=== PATIENT | male | born 1965 | race Caucasian/White ===

== ENCOUNTER 2021-05-13 12:37 | Emergency (ER) | payer OTHER ==
[~2021-05-13 12:37] MED LIST: NORCO 5-325 TA1 EACH PO
[2021-05-13 13:12] LABS: BASOPHIL 0.4 % (0-2); EOSINOPHIL 3.2 % (0-5); HCT 44.8 % (42.0-52.0); HGB 15.3 g/dl (13.2-18.0); LYMPHOCYTE 35.6 % (15-48); MCH 31.2 pg (25.0-31.0); MCHC 34.2 g/dL (32.0-36.0); MCV 91.2 fL (78.0-100.0); MONOCYTE 8.3 % (0-12); MPV 8.5 fL (6.0-9.5); NEUTROPHIL 52.1 % (41-80); NRBC 0; PLT 303 K/uL (150-400); RBC 4.91 M/uL (4.70-6.00); RDW 12.6 % (11.5-14.0); WBC 8.4 K/uL (4.0-10.5)
[2021-05-13 13:44] LABS: INR 1.02 (0.9-1.2); PROTHROMBIN TIME 12.8 SECONDS (11.8-13.4)
[2021-05-13 13:45] LABS: PTT 38.3 SECONDS (24.4-34.7)
[2021-05-13 13:58] LABS: CKMB 1.9 ng/mL (0.0-3.6)
[2021-05-13 14:37] LABS: ALBUMIN 3.6 g/dL (3.4-5.0); BILIRUBIN - TOTAL 0.3 mg/dL (0.2-1.0); BUN/CREAT RATIO (CALC) 9.3 RATIO; CREATININE 0.86 mg/dL (0.67-1.17); GLOBULIN (CALCULATION) 4.4 g/dL; POTASSIUM 3.8 mmol/L (3.5-5.1)
== END 2021-05-13 14:00 | disposition other institution (70) ==
LOC: FER 12:37
PROVIDERS: Emergency Medicine
DX: I21.9 Acute myocardial infarction, unspecified (principal); J44.9 Chronic obstructive pulmonary disease, unspecified; I10 Essential (primary) hypertension; F17.210 Nicotine dependence, cigarettes, uncomplicated; Z20.822 Contact with and (suspected) exposure to COVID-19
CPT/HCPCS: 36415; 71045; 80053; 82553; 84484; 85025; 85610; 85730; 93005; 94762; J0171; J1644; J2270; J2405; U0002

== ENCOUNTER 2021-11-07 15:55 | Inpatient (IN) | payer OTHER ==
[~2021-11-07] VITALS: Ht 177.8 cm; Wt 74.5 kg
[2021-11-07 16:56] LABS: INFLUENZA A NAA NEGATIVE (NEGATIVE)
[2021-11-07 16:58] LABS: CORONAVIRUS 2019 SARS-COV-2 POSITIVE (NEGATIVE)
[2021-11-07 19:14] LABS: ALBUMIN 3.7 g/dL (3.4-5.0); BILIRUBIN - TOTAL 0.5 mg/dL (0.2-1.0); BUN/CREAT RATIO (CALC) 19.1 RATIO; CREATININE 1.15 mg/dL (0.67-1.17); GLOBULIN (CALCULATION) 5.4 g/dL; TOTAL PROTEIN 9.1 g/dL (6.4-8.2)
[2021-11-07 19:15] LABS: POTASSIUM 6.4 mmol/L (3.5-5.1)
[2021-11-07 22:15] LABS: BUN/CREAT RATIO (CALC) 17.7 RATIO; CREATININE 0.96 mg/dL (0.67-1.17)
[2021-11-07 22:16] LABS: POTASSIUM 3.7 mmol/L (3.5-5.1)
[2021-11-07 23:35] LABS: BASOPHIL 0.5 % (0-2); EOSINOPHIL 0.3 % (0-5); HCT 52.2 % (42.0-52.0); HGB 17.5 g/dl (13.2-18.0); LYMPHOCYTE 39.4 % (15-48); MCH 30.1 pg (25.0-31.0); MCHC 33.5 g/dL (32.0-36.0); MCV 89.7 fL (78.0-100.0); MONOCYTE 14.9 % (0-12); MPV 10.2 fL (6.0-9.5); NEUTROPHIL 44.7 % (41-80); NRBC 0; PLT 272 K/uL (150-400); RBC 5.82 M/uL (4.70-6.00); RDW 14.6 % (11.5-14.0); WBC 6.5 K/uL (4.0-10.5)
[2021-11-08 07:29] LABS: BASOPHIL 0.1 % (0-2); EOSINOPHIL 0.8 % (0-5); HCT 45.9 % (42.0-52.0); HGB 15.4 g/dl (13.2-18.0); LYMPHOCYTE 19.2 % (15-48); MCH 29.7 pg (25.0-31.0); MCHC 33.6 g/dL (32.0-36.0); MCV 88.4 fL (78.0-100.0); MONOCYTE 9.2 % (0-12); MPV 8.5 fL (6.0-9.5); NEUTROPHIL 70.6 % (41-80); NRBC 0; PLT 189 K/uL (150-400); RBC 5.19 M/uL (4.70-6.00); RDW 13.8 % (11.5-14.0); WBC 7.7 K/uL (4.0-10.5)
[2021-11-08 07:39] LABS: INR 1.02 (0.9-1.2); PROTHROMBIN TIME 12.8 SECONDS (11.8-13.4)
[2021-11-08 08:01] LABS: BUN/CREAT RATIO (CALC) 18.2 RATIO; CREATININE 0.99 mg/dL (0.67-1.17); POTASSIUM 3.8 mmol/L (3.5-5.1)
[2021-11-09 06:31] LABS: BASOPHIL 0.2 % (0-2); EOSINOPHIL 0 % (0-5); HGB 13.6 g/dl (13.2-18.0); LYMPHOCYTE 27.4 % (15-48); MCH 29.6 pg (25.0-31.0); MCHC 33.2 g/dL (32.0-36.0); MCV 89.3 fL (78.0-100.0); MONOCYTE 7.1 % (0-12); MPV 8.9 fL (6.0-9.5); NEUTROPHIL 65.3 % (41-80); NRBC 0; PLT 169 K/uL (150-400); RBC 4.59 M/uL (4.70-6.00); RDW 13.6 % (11.5-14.0); WBC 4.7 K/uL (4.0-10.5)
[2021-11-09 07:04] LABS: BUN/CREAT RATIO (CALC) 13.4 RATIO; CREATININE 0.82 mg/dL (0.67-1.17); POTASSIUM 4.6 mmol/L (3.5-5.1)
--- NOTE | 2021-11-09 07:12 | NUR ---
PT REPORTS : "I WORRY I HAVE A CLOT IN MY RIGHT CALF." NO WARMTH OR REDNESS TO AREA & NEGATIVE FOR HOMANS SIGN. PT STATED "I GET CRAMPS IN THAT LEG A LOT."
[2021-11-10 06:40] LABS: BASOPHIL 0.2 % (0-2); HCT 39.5 % (42.0-52.0); HGB 13.2 g/dl (13.2-18.0); LYMPHOCYTE 41.5 % (15-48); MCH 29.5 pg (25.0-31.0); MCHC 33.4 g/dL (32.0-36.0); MCV 88.2 fL (78.0-100.0); MONOCYTE 8.4 % (0-12); MPV 9.1 fL (6.0-9.5); NEUTROPHIL 48.7 % (41-80); NRBC 0; PLT 163 K/uL (150-400); RBC 4.48 M/uL (4.70-6.00); RDW 13.5 % (11.5-14.0)
[2021-11-10 06:43] LABS: WBC 6.1 K/uL (4.0-10.5)
[2021-11-10 07:04] LABS: BUN/CREAT RATIO (CALC) 14.8 RATIO; CREATININE 0.81 mg/dL (0.67-1.17); POTASSIUM 3.4 mmol/L (3.5-5.1)
== END 2021-11-10 12:14 | disposition home or self-care (01) | DRG 356 ==
LOC: FER 15:55 → FMS 21:40
PROVIDERS: Allergy & Immunology Allergy; Emergency Medicine; Nurse Practitioner; Nurse Practitioner Family; Student in an Organized Health Care Education/Training Program; ADMIT Family Medicine
PROC: 8E0ZXY6 Isolation (ICD-10-PCS; 2021-11-07)
PROC: 0DJW4ZZ Inspection of Peritoneum, Percutaneous Endoscopic Approach (ICD-10-PCS; principal; 2021-11-08 14:00)
DX: K56.600 Partial intestinal obstruction, unspecified as to cause (principal); U07.1 COVID-19; J44.9 Chronic obstructive pulmonary disease, unspecified; K21.9 Gastro-esophageal reflux disease without esophagitis; I48.91 Unspecified atrial fibrillation; M19.90 Unspecified osteoarthritis, unspecified site; M54.9 Dorsalgia, unspecified; G89.29 Other chronic pain; F17.210 Nicotine dependence, cigarettes, uncomplicated; I25.2 Old myocardial infarction; Z88.8 Allergy status to other drugs, medicaments and biological substances; Z98.890 Other specified postprocedural states; Z86.010 Personal history of colon polyps
CPT/HCPCS: 36415; 71045; 74019; 74250; 80048; 80053; 83605; 83690; 83880; 84145; 84484; 85025; 85610; 87040; 93005; C9113; J0690; J1100; J1170; J1644; J1885; J2250; J2405; J3010; J7030; Q9967; U0002

== ENCOUNTER 2021-12-16 12:23 | Emergency (ER) | payer OTHER ==
[2021-12-16 12:54] LABS: BASOPHIL 0.4 % (0-2); EOSINOPHIL 2.1 % (0-5); HCT 46.4 % (42.0-52.0); HGB 15.7 g/dl (13.2-18.0); MCH 29.8 pg (25.0-31.0); MCHC 33.8 g/dL (32.0-36.0); MCV 88.2 fL (78.0-100.0); MONOCYTE 10.1 % (0-12); MPV 8.6 fL (6.0-9.5); NEUTROPHIL 44.7 % (41-80); NRBC 0; PLT 328 K/uL (150-400); RBC 5.26 M/uL (4.70-6.00); RDW 14.6 % (11.5-14.0); WBC 10.2 K/uL (4.0-10.5)
[2021-12-16 12:55] LABS: LYMPHOCYTE 42.4 % (15-48)
[2021-12-16 12:58] LABS: INR 1.02 (0.9-1.2); PROTHROMBIN TIME 12.8 SECONDS (11.8-13.4); PTT 31.3 SECONDS (24.4-34.7)
[2021-12-16 13:13] LABS: ALBUMIN 3.8 g/dL (3.4-5.0); BILIRUBIN - TOTAL 0.3 mg/dL (0.2-1.0); BUN/CREAT RATIO (CALC) 14.5 RATIO; CREATININE 1.1 mg/dL (0.67-1.17); GLOBULIN (CALCULATION) 4.5 g/dL; TOTAL PROTEIN 8.3 g/dL (6.4-8.2)
[2021-12-16 13:31] LABS: CORONAVIRUS 2019 SARS-COV-2 NEGATIVE (NEGATIVE); INFLUENZA A NAA NEGATIVE (NEGATIVE)
== END 2021-12-16 15:00 | disposition other institution (70) ==
LOC: FER 12:23
PROVIDERS: Emergency Medicine
DX: I21.3 ST elevation (STEMI) myocardial infarction of unspecified site (principal); I46.9 Cardiac arrest, cause unspecified; I49.01 Ventricular fibrillation; I25.10 Atherosclerotic heart disease of native coronary artery without angina pectoris; Z20.822 Contact with and (suspected) exposure to COVID-19; Z95.5 Presence of coronary angioplasty implant and graft
CPT/HCPCS: 31500; 36415; 36600; 71045; 80048; 80053; 82803; 83735; 83880; 84484; 85025; 85610; 85730; 92950; 93005; J0171; J0282; J1644; J2250; J2704; J3101; J7030; U0002

== ENCOUNTER 2021-12-23 14:32 | Emergency (ER) | payer OTHER ==
[2021-12-23 15:29] LABS: BASOPHIL 0.2 % (0-2); EOSINOPHIL 1.9 % (0-5); HCT 41.4 % (42.0-52.0); HGB 13.8 g/dl (13.2-18.0); LYMPHOCYTE 19.2 % (15-48); MCH 29.4 pg (25.0-31.0); MCHC 33.3 g/dL (32.0-36.0); MCV 88.3 fL (78.0-100.0); MONOCYTE 9.7 % (0-12); MPV 9.5 fL (6.0-9.5); NEUTROPHIL 68.1 % (41-80); NRBC 0; PLT 343 K/uL (150-400); RBC 4.69 M/uL (4.70-6.00); RDW 16.1 % (11.5-14.0); WBC 13.4 K/uL (4.0-10.5)
[2021-12-23 15:42] LABS: CREATININE 0.85 mg/dL (0.67-1.17); POTASSIUM 3.8 mmol/L (3.5-5.1)
[2021-12-23 15:46] LABS: INR 1.14 (0.9-1.2); PTT 33.3 SECONDS (24.4-34.7)
[2021-12-23] MEDS ORDERED: IMODIUM2 MG PO (16:22)
== END 2021-12-23 16:45 | disposition home or self-care (01) ==
LOC: FER 14:32
PROVIDERS: Emergency Medicine
DX: R19.7 Diarrhea, unspecified (principal); I25.10 Atherosclerotic heart disease of native coronary artery without angina pectoris; F17.210 Nicotine dependence, cigarettes, uncomplicated; Z88.8 Allergy status to other drugs, medicaments and biological substances
CPT/HCPCS: 36415; 71045; 80053; 84484; 85025; 85610; 85730; 93005

== ENCOUNTER 2022-07-24 11:55 | Emergency (ER) | payer OTHER ==
[~2022-07-24 11:55] MED LIST changes: +IMODIUM2 MG PO
[2022-07-24 13:31] LABS: BASOPHIL 0.2 % (0-2); EOSINOPHIL 1.1 % (0-5); HCT 43.7 % (42.0-52.0); LYMPHOCYTE 32.2 % (15-48); MCH 31.7 pg (25.0-31.0); MCHC 34.3 g/dL (32.0-36.0); MCV 92.4 fL (78.0-100.0); MONOCYTE 9.2 % (0-12); NEUTROPHIL 57.1 % (41-80); NRBC 0; PLT 291 K/uL (150-400); RBC 4.73 M/uL (4.70-6.00); WBC 8.6 K/uL (4.0-10.5)
[2022-07-24 13:38] LABS: INR 0.98 (0.9-1.2); PROTHROMBIN TIME 12.7 SECONDS (11.9-13.9); PTT 30.8 SECONDS (24.9-34.6)
[2022-07-24 13:45] LABS: ALBUMIN 3.9 g/dL (3.4-5.0); BILIRUBIN - TOTAL 0.3 mg/dL (0.2-1.0); BUN/CREAT RATIO (CALC) 15.5 RATIO; CREATININE 1.03 mg/dL (0.67-1.17); POTASSIUM 3.8 mmol/L (3.5-5.1); TOTAL PROTEIN 7.9 g/dL (6.4-8.2)
== END 2022-07-24 14:50 | disposition home or self-care (01) ==
LOC: FER 11:55
PROVIDERS: Internal Medicine
DX: R07.89 Other chest pain (principal); I25.2 Old myocardial infarction; I25.810 Atherosclerosis of coronary artery bypass graft(s) without angina pectoris; I10 Essential (primary) hypertension; Z82.49 Family history of ischemic heart disease and other diseases of the circulatory system; Z88.6 Allergy status to analgesic agent
CPT/HCPCS: 36415; 80053; 84484; 85025; 85610; 85730; J2270; J2405